=== PATIENT | male | born 1960 | race Caucasian/White ===

== ENCOUNTER → 2018-09-09 07:15 | Day surgery (SDC) | payer BC ==
[~2018-09-09 07:15] MED LIST: Acetaminophen TAB* 325 MG PO PRN; Buffered Lidocaine 1% SYRIN* 1 ML/SYRINGE INTRADERM ONE; Bupivacaine 0.5%* 50 ML VIAL ONE; Dexamethasone IV* 4 MG/ML 1 ML (4 MG) ONE; EPHEDrine (Pressors)* 50 MG/ML VIAL ONE; HYDROmorphone INJ1* 1 MG/ML SYRINGE ONE; Ketorolac INJ* 30 MG/ML 1 ML VIAL ONE; Lactated Ringers 1000 ML Bag* 1,000 ML IV SCH; Lidocaine 2% PF * 5 ML VIAL ONE; Lidocaine 2% PF* 10 ML AMP ONE; Midazolam* 1 MG/ML 2 ML VIAL (2 MG) ONE; Naloxone* 0.4 MG/ML 1 ML VIAL IV PRN; Ondansetron INJ* 2 MG/ML VIAL ONE; Propofol* 10 MG/ML 20 ML BTL ONE; ceFAZolin 2 GM PREMIX in ORs 2 GM/50 ML BAG IVPB ONE; fentaNYL* 50 MCG/ML 2 ML VIAL (100 MCG VIAL) ONE; oxyCODONE/Acetamin 5/325 MG* TAB ONE
--- NOTE | 2018-09-09 11:27 | OP ---
Operative Report - Blank - Operative Report Date of Operation: 09/09/18 Note: PATIENT: Angel Phan DATE OF : 1960 DATE OF SURGERY: 09/09/2018 SURGEON: Rene Reilly MD ENCAPSULATOR: VELMA Lopes, whos assistance was necessary for positioning, retraction, help with instrumentation, and closure. ANESTHESIOLOGIST: Ania Alarcon MD PREOPERATIVE DIAGNOSIS: Right anterior ankle/lower leg mass POSTOPERATIVE DIAGNOSIS: Right anterior ankle/lower leg mass OPERATION: 1. Excision of right anterior ankle/lower leg mass 2. Neurolysis of right deep peroneal nerve ANESTHESIA: General IMPLANTS: none TOURNIQUET TIME: Less than 1 hour with a well-padded thigh tourniquet at 250mmHg SPECIMENS: mass to pathology ESTIMATED BLOOD LOSS: minimal COMPLICATIONS: none STATUS: Stable from the operating room to the recovery room and then home INDICATIONS FOR PROCEDURE: Angel has a painful right ankle ankle/lower leg mass. Both operative and non- operative treatment alternatives were reviewed. Further, the nature and risks of surgery were reviewed in careful detail. Our discussions regarding the risks of surgery included, but were not limited to, infection, wound problems, nerve or vascular injury, neuroma, RSD, persistent symptoms, blood clot, recurrence, need for further surgery, failure of the surgery, and even the remote chance of catastrophic complication, including loss of limb. DESCRIPTION OF PROCEDURE: The patient was seen in the preoperative holding unit and informed written consent was obtained. The appropriate extremity was marked. The patient was then brought to the operating room and carefully positioned on the operating room table. Anesthesia was induced. All bony prominences were padded with great care. A well-padded thigh tourniquet was placed. A chlorhexidine based pre- scrub was performed followed by a chloraprep prep and drape in standard sterile fashion. A surgical safety pause was then conducted in which we confirmed the appropriate patient, extremity, planned procedure, availability of equipment, indication and administration of prophylactic antibiotics, and DVT prophylaxis in the form of a compression boot on the non-surgical extremity. I began by making an anterior midline longitudinal incision over the lower leg and ankle. I carefully incised the extensor retinaculum for later repair. At this point, the mass became visible. I carefully dissected around the mass with Metzenbaum scissors. The deep peroneal nerve was engulfed by the mass, so I had to perform an extensive neurolysis with meticulous dissection using Metzenbaum scissors. Once the mass was fully defined, it was then excised and sent to pathology. Any remaining adhesions around the deep peroneal nerve were then released with Metzenbaum scissors. I then let the tourniquet down and hemostasis was obtained. He had a strong palpable dorsalis pedis pulse. The foot was warm and well-perfused. The wound was copiously irrigated and meticulously closed in layers utilizing 3- 0 Vicryl for the extensor retinaculum, 3-0 Monocryl for the deep dermal layer and 3-0 nylon for the skin. A sterile dressing was then applied. The patient was then awakened from anesthesia and transferred to the recovery room in stable condition. There were no complications. All needle and sponge counts were correct at the end of the case. ATTESTATION: I attest I was present and scrubbed and performed the critical portions of the procedure myself. POSTOPERATIVE PLAN: He will follow up in 2 weeks for likely suture removal. He will remain nonweightbearing for the first 2 weeks.
[2018-09-09] MEDS: oxyCODONE/Acetamin 5/325 MG* TAB PO PRN ×2 (12:00→12:32)
[2018-09-09 12:48] VITALS: BP 135/90
== END | disposition home or self-care (01) ==
LOC: OR 07:15
PROVIDERS: ATTEND Orthopaedic Surgery
DX: M67.471 Ganglion, right ankle and foot (principal); I10 Essential (primary) hypertension; M06.9 Rheumatoid arthritis, unspecified; A18.4 Tuberculosis of skin and subcutaneous tissue; F17.210 Nicotine dependence, cigarettes, uncomplicated; Z88.0 Allergy status to penicillin
CPT/HCPCS: 88305; A9270-GY; J0690; J1100; J1170; J1885; J2001; J2250; J2405; J2704; J3010